=== PATIENT | male | born 1950 | race African-American/Black ===

== ENCOUNTER 2017-11-22 03:31 | Inpatient (IN) | payer OTHER ==
[~2017-11-22] VITALS: Ht 180.3 cm; Wt 73.0 kg
--- NOTE | ~2017-11-22 | O ---
[address] [place] [address] OPERATIVE REPORT Name: VINAYAK SEVILLA Lucy Room #: 440-P [facility] IN .R.#: [id number] Admission: 11/22/17 Attend Phys: Je Peters DO Discharge: Date of : 52 Report #: [id number] THIS REPORT FOR: //name// CC: Je MCDONALD DATE OF SERVICE: 11/22/2017 PREOPERATIVE DIAGNOSIS: Left tibial plateau fracture. POSTOPERATIVE DIAGNOSIS: Left tibial plateau fracture. PROCEDURE: Left tibial plateau open reduction and internal fixation. SURGEON: Tod Garner MD ANESTHESIA: General. ESTIMATED BLOOD LOSS: Minimal. DRAINS: No drains. TOURNIQUET TIME: 60 minutes. DESCRIPTION OF PROCEDURE: The patient was brought to the operating room where he was placed under general anesthesia. Once under adequate general anesthesia, his left lower extremity was prepped and draped in a sterile manner. The extremity was elevated and a tourniquet placed to 300 mmHg. A curvilinear lateral incision based over the proximal tibia was made, this was dissected down through the soft tissue to the hematoma beneath the skin, this was then elevated. The deep fascia was then incised exposing the proximal tibia. A bone Yancey elevator was then utilized to elevate the fracture fragment and reduction was then achieved utilizing fluoroscopy for guidance with provisional fixation with K-wires. A Synthes lateral periarticular plate was then placed for fixation laterally, the subchondral screws were placed first, four screws were placed, one nonlocking the plate to the bone and then 3 locking screws were placed. Excellent fixation with satisfactory alignment were achieved in this manner as verified under fluoroscopy. Distally, three cortical screws were placed in the tibial shaft. Two more extending from lateral to the subchondral medial bone were then placed as well proximally, these were locking screws. Excellent fixation and alignment was achieved in this manner as verified under fluoroscopy. The wound was irrigated copiously and closed with 0 Vicryl in the deep fascia, 2-0 Vicryl in subcutaneous tissues and angel were used for the skin. The wounds were dressed with Xeroform, 4 x 4s, and a sterile soft compressive dressing was placed. Tourniquet was let down at approximately 1 [facility] [address] [place] [address] OPERATIVE REPORT Name: VINAYAK SEVILLA Room #: 440-P [facility] IN ..#: [id number] Admission: 11/22/17 Attend Phys: Je Peters DO Discharge: Date of : 52 Report #: [id number] hour. The extremity was placed into a knee immobilizer. Toes were pink and warm with good capillary refill. There were no complications from the procedure. The patient tolerated the procedure well and went to the recovery room without incident. <ELECTRONICALLY SIGNED> By: Tod Garner MD 11/24/17 0732 1440 1631 Tod Garner MD /nt
--- NOTE | ~2017-11-22 | HC ---
[facility] [place] [address] CONSULTATION Name: ROELVINAYAK Lucy Room #: 440-P [facility] IN M.R.#: [id number] Admission: 11/22/17 Attend Phys: Je Peters DO Discharge: Date of : 52 Report #: [id number] THIS REPORT FOR: //name// CC: Je MCDONALD CHIEF COMPLAINT: Left knee fracture. HISTORY OF PRESENT ILLNESS: This is a 66-year-old gentleman who was seen in the Emergency Room earlier this morning after falling in the kitchen. He has a history of arthritis in his knee; however, when he fell, he did injure his proximal tibia in particular. He was subsequently evaluated in the Emergency Room and admitted for management of a tibial plateau fracture. MEDICATIONS: Unknown. ALLERGIES: Unknown. SOCIAL HISTORY: Negative for tobacco use. FAMILY HISTORY: Positive for alcohol use daily. PHYSICAL EXAMINATION: VITAL SIGNS: Blood pressure is 164/103, respiratory rate is 20, pulse 74, temperature is 36.5. EXTREMITIES: Examination of the patient's left lower extremity notes that he is in a posterior splint. He has good capillary refill distally. Motor is grossly intact distally. LABORATORY DATA: Hemoglobin of 12.6. X-rays and CT scan of the left knee note a highly comminuted proximal tibial plateau fracture with displacement. IMPRESSION: Left tibial plateau fracture, comminuted and displaced. PLAN: The risks, benefits, alternatives, complications were discussed at length with the patient and his family. We would proceed with a left tibial plateau open reduction and internal fixation in the near future. <ELECTRONICALLY SIGNED> By: Tod Garner MD 11/24/17 0732 0948 1211 Tod Garner MD /nt
--- NOTE | ~2017-11-22 | H ---
[facility] [place] [address] HISTORY AND PHYSICAL Name: VINAYAK SEVILLA Lucy Room #: 440-P [facility] IN M.R.#: [id number] Admission: 11/22/17 Attend Phys: Je Peters DO Discharge: Date of : 52 Report #: [id number] THIS REPORT FOR: //name// CC: Je MCDONALD DATE OF SERVICE: 11/22/2017 CHIEF COMPLAINT: Left leg pain. HISTORY OF PRESENT ILLNESS: The patient is a 66-year-old male with no significant past medical history, who presented to the Emergency Room complaining of left leg pain. The patient apparently slipped in the kitchen and fell. Family noticed a popping sound. Workup in the Emergency Room showed fracture of the tibia and the fibula. Subsequently, underwent a CT scan of the lower extremity, which showed severely comminuted impacted and angulated intra-articular tibial plateau fracture with marked depression of the lateral articular surface. The fracture is severely angulated and the distal fracture fragment is posteriorly displaced. There is mildly angulated transversely oriented proximal fibular neck fracture. Pain is fairly well controlled at present. The patient denies any dizziness. No syncopal episode. PAST MEDICAL HISTORY: No hypertension, no diabetes, no coronary artery disease. History of hernia repair. ALLERGIES: ALLERGIC TO HYDROMORPHONE. HOME MEDICATIONS: Multivitamin. SOCIAL HISTORY: No smoking. He does drink 3 beers every day. No drug abuse. FAMILY HISTORY: No history of hypertension or diabetes. REVIEW OF SYSTEMS: CONSTITUTIONAL: No recent weight loss or weight gain. EYES: No change in vision. THROAT: Denies any sore throat. CARDIOVASCULAR: No chest pain, dizziness or palpitations. RESPIRATORY: No cough or expectoration. GASTROINTESTINAL: No nausea or vomiting. GENITOURINARY: No dysuria or hematuria. NEUROLOGIC: No focal numbness or weakness of the extremity. PSYCHIATRIC: No anxiety or depression. A 12-point review of system is negative, other than the positive and negative [facility] [address] [place] [address] HISTORY AND PHYSICAL Name: ROELVINAYAK Lucy Room #: 440-P [facility] IN ..#: [id number] Admission: 11/22/17 Attend Phys: Je Peters DO Discharge: Date of : 52 Report #: [id number] dictated in the history of present illness and the review of system. PHYSICAL EXAMINATION: VITAL SIGNS: Blood pressure 162/95, heart rate of 70 per minute, afebrile. GENERAL: The patient is awake and alert, not in acute respiratory distress. EYES: Pupils equal and reactive to light. Nonicteric conjunctivae. NECK: Supple. No JVD, no bruit, no lymphadenopathy. CARDIOVASCULAR SYSTEM: S1, S2, negative S3, no murmur. CHEST: Bilateral air entry present. Clear on auscultation. ABDOMEN: Soft. Bowel sounds present. No mass, no organomegaly, no tenderness. EXTREMITIES: Periphery, no pedal edema on the right leg. The left leg is in an Bridger wrap. Dorsalis pedis 1+ bilaterally. NEUROLOGIC: The patient is able to move his toes and has no sensory deficit. LABORATORY DATA: Labs reviewed. EKG showed normal sinus rhythm; no significant changes. White count is 5.1, hemoglobin is 12.6 and platelets are 171,000. PT and PTT are within normal limit. Chemistry showed potassium of 3.4. BUN and creatinine are within normal limit. AST is 47, ALT is 48. Serum alcohol was 136. Chest x-ray showed no acute abnormality. X-ray of the tibia and fibula showed tibial plateau fracture with angulation. A CT scan of the lower extremity showed severely comminuted, impacted and angulated intra-articular tibial plateau fracture with marked depression of the lateral articular surface. Fracture is severely angulated and the distal fracture fragment is posteriorly displaced. Mildly angulated transversely oriented proximal fibular neck fracture. ASSESSMENT AND PLAN: 1. Tibial plateau fracture. 2. Proximal fibular neck fracture. Orthopedic surgeon has been consulted. The patient is presently n.p.o. 3. Hypokalemia. Potassium has been replaced. We will check his labs in the morning. 4. Elevated blood pressure. The patient and the patient's family stated that his blood pressure was elevated. At office visit, systolic was in 170. It is likely that he is going to need antihypertensive medication. At present, I have ordered IV hydralazine p.r.n. 5. History of alcohol abuse. The patient needs to be well monitored closely for any DTs. I have ordered p.r.n. Ativan. He will also be on multivitamin and thiamine. 6. Deep venous thrombosis prophylaxis. The patient will need Lovenox after the surgery. [address] [address] HISTORY AND PHYSICAL Name: VINAYAK SEVILLA Room #: 440-P [facility] IN M.R.#: [id number] Admission: 11/22/17 Attend Phys: Je Peters DO Discharge: Date of : 52 Report #: [id number] Treatment plan has been explained to the patient and the family in detail. <ELECTRONICALLY SIGNED> By: Isac Tavarez MD 11/22/17 1248 0921 0943 Isac Tavarez MD /nt
--- NOTE | ~2017-11-22 | EKG ---
[address] [place] [address] ELECTROCARDIOGRAM REPORT Name: VINAYAK SEVILLA Room #: 440-P [facility] IN M.R.#: [id number] Admission: 11/22/17 Attend Phys: Je Peters DO Discharge: Date of : 52 Report #: [id number] THIS REPORT FOR: //name// [facility] ED Test Date: 2017-11-22 Test Time: 04:32:37 Pat Name: VINAYAK SEVILLA Department: Room: 440 Gender: M Drop Forger: NOHEMI : 1950 Requested By: Rodrick Evans Order Number: [id number] MD: Jake Jiang Measurements Intervals [place] Rate: 79 P: -23 MT: 170 QRS: 19 QRSD: 88 T: 49 QT: 378 QTc: 434 Interpretive Statements Sinus rhythm No significant abnormality No previous ECG available for comparison Electronically Signed On 11-22-2017 10:14:24 [employer] by Jake Jiang [email or web address] <ELECTRONICALLY SIGNED> By: Jake Jiang MD, [facility] 11/22/17 1014 0432 0432 Jake Jiang MD, FACC /EPI
[2017-11-22 04:38] LABS: ABSOLUTE NEUTROPHILS 3.9 thou/uL (1.4-8.2); BASOPHILS 0.3 % (0.0-2.0); EOSINOPHILS 0.2 % (0.0-3.0); HEMATOCRIT 37.5 % (42.0-52.0); HEMOGLOBIN 12.6 gm/dL (14.0-18.0); LYMPHOCYTES 14.8 % (24.0-44.0); MCH 28.8 pg (26.0-34.0); MCHC 33.4 g/dL (28.0-37.0); MCV 86.3 fL (80.0-100.0); MONOCYTES 7.4 % (1.0-8.0); PLATELET COUNT 171 thou/uL (150-400); POLYS 77.3 % (36.0-66.0); RBC 4.35 mil/uL (4.50-6.00); RDW 14.7 % (10.5-14.5); WBC 5.1 thou/uL (4.0-11.0)
[2017-11-22 04:49] LABS: APTT 20.4 Seconds (24.5-32.8); CALCIUM 8.9 mg/dL (8.5-10.1); CREATININE 1.2 mg/dL (0.7-1.3); POTASSIUM 3.4 mmol/L (3.5-5.1); PROTIME 9.9 Seconds (9.3-11.4)
[2017-11-22 04:53] LABS: ALBUMIN 3.4 g/dL (3.4-5.0); TOTAL BILIRUBIN 0.2 mg/dL (<0.1-1.0); TOTAL PROTEIN 7.3 g/dL (6.4-8.2)
[2017-11-22 05:25] VITALS: BP 168/95
[2017-11-22 05:44] VITALS: BP 161/92
[2017-11-22 08:18] VITALS: BP 166/86
[2017-11-22 16:03] VITALS: BP 174/90
[2017-11-22 19:27] VITALS: BP 144/86
[2017-11-23 00:17] VITALS: BP 152/96
[2017-11-23 04:00] VITALS: BP 131/84
[2017-11-23 05:32] LABS: MCH 28.7 pg (26.0-34.0); MCHC 33.1 g/dL (28.0-37.0); MCV 86.9 fL (80.0-100.0); PLATELET COUNT 149 thou/uL (150-400); RBC 3.57 mil/uL (4.50-6.00); RDW 15.4 % (10.5-14.5); WBC 4.1 thou/uL (4.0-11.0)
[2017-11-23 05:34] LABS: HEMOGLOBIN 10.2 gm/dL (14.0-18.0)
[2017-11-23 05:51] LABS: CREATININE 1.3 mg/dL (0.7-1.3); MAGNESIUM 1.7 mg/dL (1.8-2.4); POTASSIUM 3.8 mmol/L (3.5-5.1)
[2017-11-23 08:38] LABS: ABSOLUTE NEUTROPHILS 2.3 thou/uL (1.4-8.2)
[2017-11-23 09:16] VITALS: BP 169/84
[2017-11-23 12:28] VITALS: BP 169/84
[2017-11-23 16:00] VITALS: BP 127/74
[2017-11-23 20:05] VITALS: BP 129/74
[2017-11-24 05:11] VITALS: BP 136/83
[2017-11-24 05:54] LABS: HEMATOCRIT 28.9 % (42.0-52.0); HEMOGLOBIN 9.5 gm/dL (14.0-18.0); MCH 28.8 pg (26.0-34.0); MCV 87.3 fL (80.0-100.0); PLATELET COUNT 148 thou/uL (150-400); RBC 3.31 mil/uL (4.50-6.00); RDW 15.2 % (10.5-14.5); WBC 4.4 thou/uL (4.0-11.0)
[2017-11-24 06:09] LABS: CALCIUM 8.1 mg/dL (8.5-10.1); CREATININE 1.3 mg/dL (0.7-1.3); POTASSIUM 3.8 mmol/L (3.5-5.1)
[2017-11-24 07:25] LABS: ABSOLUTE NEUTROPHILS 2.7 thou/uL (1.4-8.2)
[2017-11-24 07:27] LABS: ANISOCYTOSIS SLIGHT
[2017-11-24 08:00] VITALS: BP 135/72
[2017-11-24 11:09] VITALS: BP 169/84
[2017-11-24] MEDS ORDERED: AMLODIPINE BESYL5 M1 PO (12:28)
[2017-11-24] MEDS ORDERED: PERCOCET PO (12:28)
[2017-11-24] MEDS ORDERED: ASPIRIN EC325 M1 PO (12:32)
== END 2017-11-24 13:59 | disposition home health service (06) | DRG 493 ==
LOC: ER 03:31 → 4S 04:21 → EROBS 04:21 → 4S 05:25 → ENTRNSPT 11-24 13:22 → EDTRNSPTSTS 11-24 13:24 → 4S 11-24 13:59
PROVIDERS: Emergency Medicine; Internal Medicine; Orthopaedic Surgery Foot and Ankle Surgery
PROC: 0QSH04Z Reposition Left Tibia with Internal Fixation Device, Open Approach (ICD-10-PCS; principal; 2017-11-22)
PROC: 2W3RX1Z Immobilization of Left Lower Leg using Splint (ICD-10-PCS; principal; 2017-11-22)
DX: S82.142A Displaced bicondylar fracture of left tibia, initial encounter for closed fracture (principal); D62 Acute posthemorrhagic anemia; S82.422A Displaced transverse fracture of shaft of left fibula, initial encounter for closed fracture; E87.6 Hypokalemia; I10 Essential (primary) hypertension; F10.21 Alcohol dependence, in remission; W01.0XXA Fall on same level from slipping, tripping and stumbling without subsequent striking against object, initial encounter; Y93.G3 Activity, cooking and baking; Y92.090 Kitchen in other non-institutional residence as the place of occurrence of the external cause; Y99.8 Other external cause status; Z88.8 Allergy status to other drugs, medicaments and biological substances; Z81.1 Family history of alcohol abuse and dependence
CPT/HCPCS: 10102; 50010; 50101; 50386; 51277; 51412; 51742; 55430; 56524; 56526; 56667; 57091; 62110; 62900; 70005